=== PATIENT | male | born 1985 | race Caucasian/White ===

== ENCOUNTER 2023-10-28 14:24 | Emergency (ER) | payer OTHER ==
[2023-10-28 14:41] VITALS: BMI 27.0
[2023-10-28] MEDS ORDERED: ACETAMINOPHEN 500 MG TABLET (FP) ONE (15:07)
[2023-10-28] MEDS ORDERED: IBUPROFEN 400 MG TABLET (FP) PO ONE (15:07)
[2023-10-28] MEDS: IBUPROFEN 400 MG TABLET (FP) PO ONE (15:08)
[2023-10-28] MEDS: ACETAMINOPHEN 500 MG TABLET (FP) PO ONE (15:09)
[2023-10-28 17:17] VITALS: BP 93/52; PULSE 80; RESP 19; TEMP 99.9
== END 2023-10-28 17:27 | disposition home or self-care (01) ==
LOC: JERFT 14:24
DX: R50.9 Fever, unspecified (principal); R09.81 Nasal congestion; M79.10 Myalgia, unspecified site; R51.9 Headache, unspecified; J06.9 Acute upper respiratory infection, unspecified; Z20.822 Contact with and (suspected) exposure to COVID-19
CPT/HCPCS: 0241U-QW; 99283-25